=== PATIENT | female | born 1995 | race Caucasian/White ===

== ENCOUNTER 2021-07-07 23:58 | Emergency (ER) | payer MEDICAID ==
[~2021-07-07] VITALS: Ht 172.7 cm; Wt 140.2 kg
[2021-07-08 00:03] VITALS: BP 156/119
--- NOTE | 2021-07-08 00:16 | NUR ---
PATIENT AMBULATED TO THE AND BACK TO BED 4. URINE COLLECTED AND HANDED TO LAB
--- NOTE | 2021-07-08 00:18 | NUR ---
Dr. Olivia examining patient.
--- NOTE | 2021-07-08 00:18 | NUR ---
PT TAKEN TO BED 4
--- NOTE | 2021-07-08 00:20 | NUR ---
IV ESTABLISHED 18G RIGHT AC, BLOOD COLLECTED AND HANDED TO LAB.
--- NOTE | 2021-07-08 00:27 | NUR ---
LAB AT BEDSIDE
[2021-07-08 00:33] LABS: APPEARANCE,URINE SL CLOUDY (CLEAR); BILIRUBIN,URINE NEGATIVE (NEGATIVE); BLOOD, URINE NEGATIVE (NEGATIVE); COLOR,URINE YELLOW (YELLOW); LEUKOCYTE ESTERASE ,URINE TRACE (NEGATIVE); NITRITE, URINE NEGATIVE (NEGATIVE); UGLUCOSE NEGATIVE (NEGATIVE)
[2021-07-08 00:35] LABS: BASOPHILS % (AUTO) 0.5 % (0.0-2.0); EOSINOPHILS # (AUTO) 0.1 K/uL (0-0.4); EOSINOPHILS % (AUTO) 1.3 % (0.0-4.0); HEMATOCRIT 39.5 % (36-48); HEMOGLOBIN 13.3 g/dL (12.0-16.0); LYMPHOCYTES # (AUTO) 2.7 K/uL (2.5-16.5); LYMPHOCYTES % (AUTO) 28.2 % (20.5-51.1); MEAN CORPUSCULAR HEMOGLOBIN 28 pg (27-31); MEAN CORPUSCULAR HGB CONC 34 g/dL (33-37); MEAN CORPUSCULAR VOLUME 82.1 fL (80-94); MONOCYTES # (AUTO) 0.5 K/uL (0.8-1.0); MONOCYTES % (AUTO) 5.2 % (1.7-9.3); NEUTROPHILS # (AUTO) 6.2 K/uL (1.8-7.7); NEUTROPHILS % (AUTO) 64.8 % (42.2-75.2); PLATELET COUNT (AUTO) 311 K/uL (140-450); RED BLOOD CELL COUNT(AUTO) 4.81 MIL/uL (4.20-5.40); RED CELL DISTRIBUTION WIDTH 13.5 % (11.6-13.7); WHITE BLOOD COUNT (AUTO) 9.5 K/uL (4.8-10.8)
--- NOTE | 2021-07-08 00:35 | NUR ---
Ultrasound at bedside.
--- NOTE | 2021-07-08 00:37 | NUR ---
26 Y/O FEMALE BIBS FROM HOME, C/O.vaginal bleed/ unstable bs [id number]. PT STATES SHE IS 16 WEEKS . reports 8/10 cramping. states bs was 22 when she woke up took glucose tabs, then bs 380. now bs is 162. pt states since she has been on "sweet success" bs is unstable. reports rt arm numbness and blurry vision. denies chest pain. A/OX4, GCS-15; SKIN NORMAL, WARM, AND DRY; UNLABORED BREATHING AND SPEAKING IN FULL SENTENCES, AMBULATES WITHOUT ASSISTANCE. PT SEATED IN BED WITH HOB RAISED, BED IN LOWEST SETTING, AND RAILS UP X2. hx:dm rx:levemir, metformin, sweet success
--- NOTE | 2021-07-08 00:53 | NUR ---
ER MD AT BEDSIDE DISCUSSING PT RESULTS
[2021-07-08 00:58] VITALS: BP 143/99
--- NOTE | 2021-07-08 01:01 | NUR ---
Patient discharged with v/s stable. Written and verbal after care instructions given and explained. Patient verbalized understanding. Ambulatory with steady gait. All questions addressed prior to discharge. Advised to follow up with PMD. A/OX4, VSS, UNLABORED BREATHING, AMBULATORY, AND CALM DEMEANOR.
[2021-07-08 01:07] LABS: ALBUMIN 3.1 g/dL (3.4-5.0); ANION GAP 14.8 (8-16); CARBON DIOXIDE 24.9 mmol/L (21-32); CREATININE 0.7 mg/dL (0.6-1.3); POTASSIUM 3.7 mmol/L (3.5-5.1); TOTAL BILIRUBIN 0.1 mg/dL (0.0-1.0)
== END 2021-07-08 01:01 | disposition home or self-care (01) ==
LOC: MED 23:58
DX: O20.0 Threatened abortion (principal); O20.8 Other hemorrhage in early pregnancy; E11.9 Type 2 diabetes mellitus without complications; Z3A.16 16 weeks gestation of pregnancy
CPT/HCPCS: 36415; 76805; 80053; 81001; 82948; 84702; 85025; 86900; 86901; 87086; 99284; Q0092

== ENCOUNTER 2021-11-30 01:00 | Observation (INO) | payer MEDICAID ==
[~2021-11-30] VITALS: Ht 172.7 cm; Wt 149.7 kg
[2021-11-30] MEDS ORDERED: METF-346 PO (01:50)
[2021-11-30] MEDS ORDERED: PRETAB PO (01:50)
[2021-11-30 01:52] VITALS: BP 133/82
[2021-11-30] MEDS ORDERED: ACETAMINOPHEN 325 MG TAB ONE (01:57)
[2021-11-30] MEDS: ACETAMINOPHEN 325 MG TAB PO PRN ×2 (02:39→04:29)
== END 2021-11-30 04:33 | disposition home or self-care (01) ==
LOC: MLD 01:00
PROVIDERS: ADMIT Obstetrics & Gynecology; ATTEND Obstetrics & Gynecology
DX: O62.9 Abnormality of forces of labor, unspecified (principal); O36.8130 Decreased fetal movements, third trimester, not applicable or unspecified; Z3A.39 39 weeks gestation of pregnancy; Z91.040 Latex allergy status
CPT/HCPCS: 59025; 76819; 81000; G0378; Q0092